=== PATIENT | male | born 1970 | race Caucasian/White ===

== ENCOUNTER 2023-12-21 12:48 | Emergency (ER) | payer OTHER, SELFPAY ==
[2023-12-21] VITALS (10 sets, daily range): BP systolic 102–144; BP diastolic 65–91; BMI 25.1
[2023-12-21 13:48] LABS: ALT (SGPT) 73 U/L (0-50); AST (SGOT) 39 U/L (17-59); Albumin 4.8 g/dl (3.5-5.0); Alkaline Phosphatase 46 U/L (38-126); Blood Urea Nitrogen 16 mg/dl (9-20); Calcium 9.9 mg/dl (8.4-10.2); Carbon Dioxide 27 mmol/L (22-30); Chloride 97 mmol/L (98-107); Estimated Creatinine Clearance 104 ml/min; Glucose 129 mg/dl (70-99); Sodium 135 mmol/L (135-145); Total Bilirubin 0.7 mg/dl (0.2-1.3); Total Protein 7.5 g/dl (6.3-8.2); eGFR > 60.00
[2023-12-21 14:00] LABS: Troponin I < 0.012 ng/ml
--- NOTE | 2023-12-21 14:28 | ED.GENMED ---
History of Present Illness
<JUAN Rosales - Last Filed: 12/25/23 01:44>
General
Chief Complaint: Chest Pain
Source: patient
Exam Limitations: none
Time Seen by Provider: 12/21/23 13:41
Nursing documentation reviewed up to this point in time: agreed with
Travel History
Have you had any contact with someone who has COVID-19?: No
Do you have any symptoms of coronavirus? Fever > 100 degrees, chills, cough, shortness of breath, sore throat, loss of taste or smell, muscle aches, or headache?: No
History of Present Illness
History of Present Illness:
53-year male with past medical history of CAD hyperlipidemia [place] stent pancreatitis presents to the ER for evaluation of chest pain. Patient was sitting at work at 11 AM when he developed pain in the center of his chest that radiated to the center
of his back. He reports this pain was similar but not as severe as the pain he had when he had stents. He had no associated shortness of breath nausea vomiting diaphoresis. He still currently has the pain he reports pain is about a 3 out of a 10.
He has not taken his aspirin today as he is out of it.
Past History
<JUAN Rosales - Last Filed: 12/25/23 01:44>
Past History
ED Past Medical History: HTN, Hypercholesterolemia, NIDDM and Other (Pancreatitis)
ED Past Surgical History: Cardiac (Cardiac cath �2, stents X3)
Social History
Tobacco: Former smoker
Alcohol: Daily (Vodka 4 glasses)
Drug: None
Personal: Other (Seperated)
Living: alone
Employment: Employed
Family History
Family History: Adopted
Review of Systems
<JUAN Rosales - Last Filed: 12/25/23 01:44>
Review of Systems
Allergies reviewed?: Yes
Constitutional: Reports no symptoms
Respiratory: Denies trouble breathing
Cardiac: Reports chest pain
ABD/GI: Reports no symptoms; Denies nausea or vomiting
: Reports no symptoms
Musculoskeletal: Reports no symptoms
Skin: Reports no symptoms
Neurological: Reports no symptoms
Hematologic/Lymphatic: Reports no symptoms
Psychiatric: Reports no symptoms
Phy Exam
<JUAN Rosales - Last Filed: 12/25/23 01:44>
General Physical Exam
General Presentation: no apparent distress
General age: appears stated age
General Skin: warm and dry
General Habitus: normal
General Mental: alert
General Hydration: appears well hydrated
Cardiovascular Exam
Cardiovascular Exam: regular rate/rhythm, no murmur and normal peripheral pulses
Pulmonary Exam
Pulmonary Exam: lungs clear and no respiratory distress
Neurological Exam
Neurological Exam: alert and oriented x3
Musculoskeletal Exam
Musculoskeletal Exam: full ROM
Skin Exam
Skin Exam: normal color and warm/dry
Psychiatric Exam
Psychiatric Exam: normal mood/affect
Scores
<JUAN Rosales - Last Filed: 12/25/23 01:44>
Heart Score for Chest Pain Patients
Heart Score for Chest Pain Patients: 3
Heart Score Risk: 2.5% MACE over next 6 weeks
<Heath Alvarenga PA-C - Last Filed: 12/21/23 17:51>
Heart Score for Chest Pain Patients
STEMI patient?: No
History: Slightly or Non-Suspicious
ECG: Normal
Age: >45 - <65 years
Risk Factors: >/= 3 Risk Factors or History of CAD
Troponin: </= Normal Limit
Heart Score for Chest Pain Patients: 3
Heart Score Risk: 2.5% MACE over next 6 weeks
Course
<JUAN Rosales - Last Filed: 12/25/23 01:44>
Orders/Labs/Results
Orders:
Orders
12/21/23 12:51
ECG [Electrocardiogram (*1)] Urgent
Reason for Study: Chest Pain
EKG- Treatment ONCE
12/21/23 13:21
Complete Blood Count/With Diff Urgent
Comprehensive Metabolic Panel Urgent
Troponin I Urgent
12/21/23 14:40
CT Chest Angio W/wo Iv Contras Urgent
Comment:
Reason For Exam: cp radiating to back
12/21/23 14:41
0.9% Sodium Chloride 1000 ml [Nss] 1,000 ml IV BOLUS
12/21/23 14:47
Aspirin Chewable [Low Strength Aspirin] 324 mg PO NOW STA
Nitroglycerin Sublingual [Nitrostat (Sublingual)] 0.4 mg SL NOW STA
12/21/23 16:00
EKG [Electrocardiogram (*1)] Urgent
Reason for Study: Chest Pain
EKG- Treatment ONCE
12/21/23 16:12
Troponin I Urgent
Abnormal Lab Results
12/21/23 12/21/23
13:21 17:37
RBC 4.49 L 10^6/uL
(4.70-6.10)
MCH 34.1 H pg
(27.0-31.0)
RDW 11.3 L %
(11.5-14.5)
MPV 11.2 H fL
(7.4-10.4)
Chloride 97 L mmol/L
(98-107)
Glucose 129 H mg/dl
(70-99)
ALT 73 H U/L
(0-50)
POC Glucose 109 H mg/dl
(70-99)
12/21/23 13:21
12/21/23 13:21
Vital Signs
Initial and Last Documented VS:
Initial Vital Signs
Temp Pulse Resp BP Pulse Ox
98.1 F 71 18 137/91 96
12/21/23 13:05 12/21/23 13:05 12/21/23 13:05 12/21/23 13:05 12/21/23 13:05
Last Documented Vital Signs
Temp Pulse Resp BP Pulse Ox
98.3 F 82 15 144/88 99
12/21/23 18:02 12/21/23 17:45 12/21/23 17:45 12/21/23 17:22 12/21/23 17:45
<Heath Alvarenga PA-C - Last Filed: 12/21/23 17:51>
Orders/Labs/Results
Orders:
Orders
12/21/23 12:51
ECG [Electrocardiogram (*1)] Urgent
Reason for Study: Chest Pain
EKG- Treatment ONCE
12/21/23 13:21
Complete Blood Count/With Diff Urgent
Comprehensive Metabolic Panel Urgent
Troponin I Urgent
12/21/23 14:40
CT Chest Angio W/wo Iv Contras Urgent
Comment:
Reason For Exam: cp radiating to back
12/21/23 14:41
0.9% Sodium Chloride 1000 ml [Nss] 1,000 ml IV BOLUS
12/21/23 14:47
Aspirin Chewable [Low Strength Aspirin] 324 mg PO NOW STA
Nitroglycerin Sublingual [Nitrostat (Sublingual)] 0.4 mg SL NOW STA
12/21/23 16:00
EKG [Electrocardiogram (*1)] Urgent
Reason for Study: Chest Pain
EKG- Treatment ONCE
12/21/23 16:12
Troponin I Urgent
Abnormal Lab Results
12/21/23 12/21/23
13:21 17:37
RBC 4.49 L 10^6/uL
(4.70-6.10)
MCH 34.1 H pg
(27.0-31.0)
RDW 11.3 L %
(11.5-14.5)
MPV 11.2 H fL
(7.4-10.4)
Chloride 97 L mmol/L
(98-107)
Glucose 129 H mg/dl
(70-99)
ALT 73 H U/L
(0-50)
POC Glucose 109 H mg/dl
(70-99)
12/21/23 13:21
12/21/23 13:21
Vital Signs
Initial and Last Documented VS:
Initial Vital Signs
Temp Pulse Resp BP Pulse Ox
98.1 F 71 18 137/91 96
12/21/23 13:05 12/21/23 13:05 12/21/23 13:05 12/21/23 13:05 12/21/23 13:05
Last Documented Vital Signs
Temp Pulse Resp BP Pulse Ox
98.3 F 82 15 144/88 99
12/21/23 18:02 12/21/23 17:45 12/21/23 17:45 12/21/23 17:22 12/21/23 17:45
<JUAN Rosales - Last Filed: 12/25/23 01:44>
MDM/Problems Addressed
MDM/Problems Addressed:
1610:Patient is a 53 yr old male who presents to the ER complaining of chest pressure that radiated to his back. 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 He reports this was the same as when he had
previous cardiac stents. He presents awake alert no acute distress nontachycardic nonhypoxic nontachypneic. No acute findings on EKG. Will give aspirin here in the ER and will give nitro. Will CT a angio of chest with chest pain rating to the
back. Case Case discussed with on-call checkering machine adjuster his second cardiac troponin patient may likely be discharged home. Care of patient this time transferred to [facility]
<JUAN Rosales - Last Filed: 12/25/23 01:44>
*Radiology
Radiology exam reviewed: radiology read reviewed
*Pulse Oximetry
Patient hypoxic: no
<Heath Alvarenga PA-C - Last Filed: 12/21/23 17:51>
*Critical Care Note
Total Time (30-74mins, 75-104mins- exclusive of procedures): Not Applicable
<Heath Alvarenga PA-C - Last Filed: 12/21/23 17:51>
Update Note
Update Note:
Assumed care of patient pending CT of chest and repeat troponin. Repeat troponin undetectable. CT PE study negative for acute finding. Patient reassessed. He is pain-free with stable vital signs. No chest discomfort or back pain. Provider
earlier did speak with cardiology. Will discharge patient with chest pain follow-up. Return precautions were given
ED Attending Note
<JUAN Rosales - Last Filed: 12/25/23 01:44>
-
Portions of this chart may have been created with voice recognition software.� Occasional wrong word or��sound alike� substitutions may have occurred due to the inherent limitations of voice recognition software.
Discharge Plan
Departure
Patient Disposition: Home (Routine Discharge)
Date of Disposition: 12/21/23
Time of Disposition: 17:50
Patient with high blood pressure during this ER visit?: No
Discharge Problem:
Chest pain
Instructions: Chest Pain DCA Follow Up
Prescriptions:
No Action
glimepiride 4 MG tablet
4 mg PO DAILY
Patient Comments:
Patient takes in AM
lisinopril 20 MG tablet
20 mg PO DAILY Qty: 30 11RF
metoprolol succinate 100 MG tablet extended release 24 hr
100 mg PO BID Qty: 60 11RF
clopidogrel 75 MG tablet
75 mg PO DAILY Qty: 30 11RF
amlodipine 10 MG tablet
10 mg PO DAILY Qty: 30 11RF
aspirin 81 MG tablet,chewable
81 mg PO DAILY 0RF
metformin 1,000 MG tablet
1,000 mg PO BID@0630,1900 Qty: 60 0RF
Patient Comments:
Patient usually takes around meals at 0630, 1900
Rx Instructions:
Hold metformin for 48 hours following cath, then resume
insulin degludec [Tresiba FlexTouch U-100] 100 UNIT/ML insulin pen
50 unit SQ HSPRN PRN (Reason: high blood sugar ) Qty: 1 0RF
Rx Instructions:
Follow-up with your primary care doctor about whether or not to resume Tresiba
atorvastatin 40 MG tablet
80 mg PO QPM
Referrals:
Ryne Lee DO [Family Provider] -
Stand Alone Forms: Return to Work
Activity Restrictions/Additional Instructions:
Please continue current medication. Please return here for worsening symptoms otherwise follow-up with cardiology for next available appointment. They should give you a call soon to set up an appointment
Interventions
Interventions:
*Risk Screen - Suicide Last Done: 12/21/23 17:05
*General Assessment Last Done: 12/21/23 17:05
*Neglect/Abuse Screening Last Done: 12/21/23 17:05
ED- Fall Risk Assessment Last Done: 12/21/23 13:40
*ED COVID-19 Vaccine History Last Done: 12/21/23 13:05
*Nursing Disposition Last Done: 12/21/23 18:06
ED- Cardiac Assessment Last Done: 12/21/23 14:56
Discharge Date and Time
Discharge Date/Time: 12/21/23 18:07
Print Language: MALTESE
[2023-12-21] MEDS: LOW STRENGTH ASPIRIN 324 MG PO (15:02)
[2023-12-21] MEDS: NITROSTAT (SUBLINGUAL) 0.400000000000000022 MG SL (15:03)
[2023-12-21] MEDS: NSS 1000 IV (15:05)
[2023-12-21 15:14] LABS: % Basophils 0.9 % (0-2); % Eosinophils 4.1 % (0-6); % Immature Granulocytes 0.5 % (0-0.5); % Lymphocytes 28.9 % (20.5-51.1); % Monocytes 6.8 % (1.7-9.3); % Neutrophils 58.8 % (42.2-75.2); Absolute Basophils 0.1 10^3/uL (0-0.2); Absolute Eosinophils 0.3 10^3/uL (0-0.7); Absolute Lymphocytes 1.9 10^3/uL (1.2-3.4); Absolute Monocytes 0.4 10^3/uL (0.1-0.6); Absolute Neutrophils 3.8 10^3/uL (1.4-6.5); Hematocrit 41.6 % (39.0-52.0); Hemoglobin 15.3 g/dL (13.0-18.0); Mean Corp Hgb Conc. 36.8 g/dL (33.0-37.0); Mean Corpuscular Hgb 34.1 pg (27.0-31.0); Mean Corpuscular Volume 92.7 fL (80.0-94.0); Mean Platelet Volume 11.2 fL (7.4-10.4); Nucleated Red Blood Cells % 0 % (-); Platelet Count 167 10^3/uL (130-400); Red Blood Cell Count 4.49 10^6/uL (4.70-6.10); Red Cell Dist. Width 11.3 % (11.5-14.5); White Blood Cell Count 6.5 10^3/uL (4.8-10.8)
[2023-12-21 16:46] LABS: Troponin I < 0.012 ng/ml
[2023-12-21 17:39] LABS: Glucose - Point of Care 109 mg/dl (70-99)
== END 2023-12-21 18:07 | disposition home or self-care (01) ==
LOC: EMR 12:48
PROVIDERS: Physician Assistant; Physician Assistant Medical; EMERGENCY PHYSICIAN Emergency Medicine; FAMILY PHYSICIAN Family Medicine
DX: R07.89 Other chest pain (principal); M54.6 Pain in thoracic spine; R11.0 Nausea; R05.9 Cough, unspecified; I25.10 Atherosclerotic heart disease of native coronary artery without angina pectoris; Z95.5 Presence of coronary angioplasty implant and graft; K86.1 Other chronic pancreatitis; E78.00 Pure hypercholesterolemia, unspecified; E11.9 Type 2 diabetes mellitus without complications; I25.2 Old myocardial infarction; Z87.891 Personal history of nicotine dependence; Z79.82 Long term (current) use of aspirin
CPT/HCPCS: 99285; 71275; 80053; 82962; 84484; 85025; 93005; Q9967

== ENCOUNTER → 2024-01-11 08:04 | Outpatient (REF) | payer OTHER, SELFPAY | LOC: DHCBC/DCA 08:04 | PROVIDERS: ATTENDING PHYSICIAN Internal Medicine Cardiovascular Disease; FAMILY PHYSICIAN Family Medicine | DX: I25.10 Atherosclerotic heart disease of native coronary artery without angina pectoris (principal); Z98.890 Other specified postprocedural states; R07.89 Other chest pain | CPT/HCPCS: 78452; 93017; A9500 ==

== ENCOUNTER 2024-09-10 03:37 | Day surgery (SDC) | payer OTHER, SELFPAY ==
[2024-09-09 21:22] VITALS: BMI 25.0
[2024-09-09 21:24] VITALS: BP 123/84
[2024-09-09 21:45] LABS: % Basophils 0.6 % (0-2); % Eosinophils 3.4 % (0-6); % Immature Granulocytes 0.6 % (0-0.5); % Lymphocytes 21.8 % (20.5-51.1); % Monocytes 7.5 % (1.7-9.3); % Neutrophils 66.1 % (42.2-75.2); Absolute Basophils 0.1 10^3/uL (0-0.2); Absolute Eosinophils 0.3 10^3/uL (0-0.7); Absolute Immature Granulocytes 0.1 10^3/uL (0-0.05); Absolute Lymphocytes 2.1 10^3/uL (1.2-3.4); Absolute Monocytes 0.7 10^3/uL (0.1-0.6); Absolute Neutrophils 6.3 10^3/uL (1.4-6.5); Hematocrit 41.5 % (39.0-52.0); Hemoglobin 14.5 g/dL (13.0-18.0); Mean Corp Hgb Conc. 34.9 g/dL (33.0-37.0); Mean Corpuscular Hgb 31.9 pg (27.0-31.0); Mean Corpuscular Volume 91.4 fL (80.0-94.0); Mean Platelet Volume 9.3 fL (7.4-10.4); Nucleated Red Blood Cells % 0 % (-); Platelet Count 180 10^3/uL (130-400); Red Blood Cell Count 4.54 10^6/uL (4.70-6.10); Red Cell Dist. Width 11.4 % (11.5-14.5); White Blood Cell Count 9.5 10^3/uL (4.8-10.8)
[2024-09-09 21:46] LABS: Urine Albumin Negative (Neg - Trace); Urine Bilirubin Negative (Negative); Urine Character Clear (Clear); Urine Color Yellow; Urine Glucose 4+ (Negative); Urine Ketone Negative (Negative); Urine Leukocyte Negative (Negative); Urine Nitrite Negative (Negative); Urine Occult Blood Negative (Negative); Urine Specific Gravity 1.015 (<1.030); Urine Urobilinogen Negative (Neg - 1+)
[2024-09-09 22:05] LABS: ALT (SGPT) 78 U/L (0-50); AST (SGOT) 42 U/L (17-59); Albumin 4.2 g/dl (3.5-5.0); Alkaline Phosphatase 79 U/L (38-126); Blood Urea Nitrogen 19 mg/dl (9-20); Calcium 9.5 mg/dl (8.4-10.2); Carbon Dioxide 29 mmol/L (22-30); Chloride 97 mmol/L (98-107); Glucose 126 mg/dl (70-99); Sodium 133 mmol/L (135-145); Total Bilirubin 0.7 mg/dl (0.2-1.3); Total Protein 6.6 g/dl (6.3-8.2); eGFR > 60.00
[2024-09-09 23:00] VITALS: BP 128/75
[2024-09-10] VITALS (18 sets, daily range): BP systolic 107–146; BP diastolic 64–93; BMI 24.8
--- NOTE | 2024-09-10 02:09 | ED.GENMED ---
History of Present Illness
General
Chief Complaint: Flank Pain
Source: patient
Exam Limitations: none
Time Seen by Provider: 09/09/24 23:09
History of Present Illness
History of Present Illness:
54-year-old male presents with right sided abdominal pain and flank pain onset earlier this evening. Pain is constant dull aching in nature with slight nausea but no vomiting. Pain occasionally radiates to the front. No associated chest pain. No
shortness of breath. No fevers. History of hypertension hyperlipidemia myocardial infarction yyk-kcwejkc-dqylwkjeg diabetes
Past History
Past History
ED Past Medical History: HTN, Hypercholesterolemia, NIDDM and Other (Pancreatitis)
ED Past Surgical History: Cardiac (Cardiac cath �2, stents X3)
Social History
Tobacco: Former smoker
Alcohol: Daily (Vodka 4 glasses)
Drug: None
Personal: Other (Seperated)
Living: alone
Employment: Employed
Family History
Family History: Adopted
Phy Exam
Physical Exam
Physical Exam:
General: Well-appearing male no acute respiratoryDistress
HEENT: Normocephalic atraumatic
Heart: Regular rate and rhythm no murmurs
Lungs: Clear no wheeze
Abdomen soft tender to the right mid abdomen no guarding rebound negative Beasley sign
Ext: No cyanosis or edema
skin: warm, no rash
Course
Orders/Labs/Results
Orders:
Orders
09/09/24 21:33
Complete Blood Count/With Diff Urgent
Comprehensive Metabolic Panel Urgent
Urinalysis Reflex To Culture Urgent
Date Specimen was Collected: 09/09/24
Time Specimen was Collected: 21:24
09/10/24 01:00
CT Abd/pel Without Iv Or Oral Urgent
Reason For Exam: right flank pain
09/10/24 02:39
Piperacillin/Tazo 3.375 Gram [Zosyn] 3.375 gram in 50 ml IV NOW
Abnormal Lab Results
09/09/24
21:33
RBC 4.54 L 10^6/uL
(4.70-6.10)
MCH 31.9 H pg
(27.0-31.0)
RDW 11.4 L %
(11.5-14.5)
Abs Immat Gran (auto) 0.1 H 10^3/uL
(0-0.05)
Absolute Monos (auto) 0.7 H 10^3/uL
(0.1-0.6)
Immature Gran % 0.6 H %
(0-0.5)
Sodium 133 L mmol/L
(135-145)
Chloride 97 L mmol/L
(98-107)
Glucose 126 H mg/dl
(70-99)
ALT 78 H U/L
(0-50)
Urine Glucose 4+ A
(Negative)
09/09/24 21:33
09/09/24 21:33
Vital Signs
Initial and Last Documented VS:
Initial Vital Signs
Temp Pulse Resp BP Pulse Ox
98.5 F 80 16 123/84 100
09/09/24 21:24 09/09/24 21:24 09/09/24 21:24 09/09/24 21:24 09/09/24 21:24
Last Documented Vital Signs
Temp Pulse Resp BP Pulse Ox
98.0 F 74 17 121/82 96
09/09/24 23:01 09/10/24 02:00 09/10/24 02:00 09/10/24 02:00 09/10/24 02:00
MDM/Problems Addressed
Differential Diagnosis Includes:
Right mid abdominal pain/flank pain. Consider renal colic with biliary colic versus cholecystitis versus constipation
Urinalysis shows glucose in the urine but no sign of infection or blood. CT was ordered secondary to pain in the right flank which demonstrates gallbladder wall thickening and pericholecystic fluid suggestive of acute cholecystitis. Discussed
findings with patient as well as general surgery.
*Critical Care Note
Total Time (30-74mins, 75-104mins- exclusive of procedures): Not Applicable
Update Note
Update Note:
Discussed with general surgery. They agreed to admit the patient. Miriansyn ordered will hold Plavix and repeat labs in the morning. House provider made aware
ED Attending Note
-
Portions of this chart may have been created with voice recognition software.� Occasional wrong word or��sound alike� substitutions may have occurred due to the inherent limitations of voice recognition software.
Discharge Plan
Departure
Patient Disposition: Admit
Date of Disposition: 09/10/24
Time of Disposition: 02:42
Presentation/result/management discussed w/ accepting MD/DO: Myron
Discharge Problem:
Acute cholecystitis
Prescriptions:
No Action
glimepiride 4 MG tablet
4 mg PO DAILY
Patient Comments:
Patient takes in AM
lisinopril 20 MG tablet
20 mg PO DAILY Qty: 30 11RF
metoprolol succinate 100 MG tablet extended release 24 hr
100 mg PO BID Qty: 60 11RF
clopidogrel 75 MG tablet
75 mg PO DAILY Qty: 30 11RF
amlodipine 10 MG tablet
10 mg PO DAILY Qty: 30 11RF
aspirin 81 MG tablet,chewable
81 mg PO DAILY 0RF
metformin 1,000 MG tablet
1,000 mg PO BID@0630,1900 Qty: 60 0RF
Patient Comments:
Patient usually takes around meals at 0630, 1900
Rx Instructions:
Hold metformin for 48 hours following cath, then resume
insulin degludec [Tresiba FlexTouch U-100] 100 UNIT/ML insulin pen
50 unit SQ HSPRN PRN (Reason: high blood sugar ) Qty: 1 0RF
Rx Instructions:
Follow-up with your primary care doctor about whether or not to resume Tresiba
atorvastatin 40 MG tablet
80 mg PO QPM
Referrals:
Ryne Lee, DO [Family Provider] -
Interventions
Interventions:
*Risk Screen - Suicide Last Done: 09/09/24 21:24
*General Assessment Last Done: 09/09/24 21:24
*Neglect/Abuse Screening Last Done: 09/09/24 23:24
ED- Fall Risk Assessment Last Done: 09/09/24 23:24
*ED COVID-19 Vaccine History Last Done: 09/09/24 21:24
PK-Eejtbx-Tmdlpohobe Assessment Last Done: 09/09/24 23:33
ED-Male Genitourinary Assessment Last Done: 09/09/24 23:33
Discharge Date and Time
Print Language: ICELANDIC
[2024-09-10] MEDS: ZOSYN 50 IV ×2 (03:23→08:29)
--- NOTE | 2024-09-10 03:27 | HPS.HSE ---
Addendum entered and electronically signed by Jemal Sanches MD 09/10/24 08:26:
Patient seen and examined.
Patient is a 54 yo M with a PMH of HTN, HLD, CAD c/b [place] s/p PCI with drug-eluting stent x 3 (on baby aspirin x 2, LD Monday night), NIDDM, and alcoholic pancreatitis. Mr. Rivero presents with RUQ abdominal pain and discomfort. His symptoms began
acutely yesterday at approximately 5 PM. He denies any association with fatty food intake. He describes a sharp pain in his RUQ with some mild radiation to his back. Associated nausea, no episodes of vomiting. He denies any jaundice, pale
stools, or tea colored urine. Denies having any prior similar attacks. No fevers or chills.
Of note, he follows with Dr. Maury Null for a counter hop. He was last evaluated in 06/2024. He recently underwent a biceps tendon repair by Dr. Bailey which he did well with. He is able to walk up and down a flight of stairs. Denies any chest
pain or shortness of breath.
Gen: NAD
Abd: soft, mild tenderness in RUQ, positive Beasley's sign, ND, non-peritoneal
Labs and CT scan were reviewed
Patient is a 54 yo M p/w acute cholecystitis
The natural history and pathophysiology of biliary and stone disease was briefly discussed. Workup thus far including labs and CT scan imaging was reviewed. Options for management were reviewed. Given his persistent discomfort recommend
cholecystectomy.
Plan for laparoscopic cholecystectomy with possible cholangiogram. The procedure itself, as well as the risks, benefits, and alternatives was discussed. Specifically, we discussed the risks of bleeding, infection, injury to surrounding structures
(bowel, bile ducts), CBD injury, need for open procedure. Typical postprocedural recovery was discussed. Specifically, we discussed pain management, activity restrictions, and the 10-20% risks of fluctuations in GI function. All questions
answered. Consent signed.
-- Laparoscopic cholecystectomy with possible IOC
-- NPO, IVF
-- Antibiotics: Zosyn
-- Pain control: Tylenol and IV Dilaudid as needed
-- Dr. Null from Cardiology was alerted to his presence and potential upcoming procedure. Anticipate little need for further workup or management. Appreciate curbside consultation.
Original Note:
Family Physician
-
Family Physician: Ryne Lee
Chief Complaint
-
Abdominal Pain
History of Present Illness
54 year old male with PMH of HTN, Hypercholesterolemia, NIDDM, Pancreatitis, VA. Present in ER with RT sided abdominal pain/ RT flank pain. Symptoms associated with nausea. Pain rated 5-7/10 of pain scale constant and dull, patient was not able to
get in comfortable position. Denies similar episodes, denies vomiting, diarrhea, constipation, chills, fever, urinary symptoms, SOB, chest pain or any other symptoms.
Medical History
Past Medical History
Past Medical History: Reports HTN, Hypercholesterolemia, NIDDM, VA and Other (Pancreatitis)
Past Surgical History: Reports Cardiac (Cardiac cath �2, stents X3)
Social History
Tobacco: Former Smoker
Alcohol: None
Drug: None
Personal: Other
Living: Other
Employment: Employed
Family History
Family History: Adopted
Allergies / Home Medications
Allergies reflects when Allergies were last updated in [employer].
Home Medications with original date entered in [employer]
Allergy/Medication List:
Patient Allergies
Allergy/AdvReac Type Severity Reaction Status Date / Time
No Known Allergies Allergy Verified 09/09/24 21:26
Home Medications Table - record
�Medication �Instructions �Recorded �Confirmed
lisinopril 20 mg tablet 20 mg PO DAILY ##30 08/17/17 09/10/24
atorvastatin 40 mg tablet 40 mg PO QPM 10/12/17 09/10/24
Jardiance 10 mg PO DAILY 09/10/24 09/10/24
amlodipine 10 mg tablet 5 mg PO DAILY 09/10/24 09/10/24
aspirin 81 mg chewable tablet 2 tab PO QHS 09/10/24 09/10/24
ezetimibe 10 mg tablet 10 mg PO DAILY 09/10/24 09/10/24
glimepiride 2 mg tablet 1 mg PO DAILY 09/10/24 09/10/24
hydrochlorothiazide 25 mg tablet 25 mg PO DAILY 09/10/24 09/10/24
metformin 1,000 mg tablet 1,000 mg PO BID 09/10/24 09/10/24
metoprolol succinate 100 mg 100 mg PO QHS 09/10/24 09/10/24
tablet,extended release 24 hr
omega 0-roi-ikr-fish oil 900 1 cap PO QHS 09/10/24 09/10/24
mg-1,400 mg capsule,delayed release
tadalafil 20 mg tablet 20 mg PO DAILY PRN erectile 09/10/24 09/10/24
Review of Systems
-
History Source: Patient
A 12 point ROS was completed and negative except as noted: Yes
Constitutional: Reports No Symptoms
EENT: Reports No Symptoms
Respiratory: Reports No Symptoms
Cardiac: Reports No Symptoms
Abdomen/GI: Reports Abdominal Pain and Nausea
: Reports Flank Pain
Musculoskeletal: Reports No Symptoms
Skin: Reports No Symptoms
Neurological: Reports No Symptoms
Endocrine: Reports No Symptoms
Hematologic/Lymphatic: Reports No Symptoms
Psych: Reports No Symptoms
Physical Exam
Vital Signs
Vital Signs
Temp Pulse Resp BP Pulse Ox
98.0 F 73 10 121/82 96
09/09/24 23:01 09/10/24 03:23 09/10/24 03:23 09/10/24 02:00 09/10/24 02:00
Physical Exam
General: No Apparent Distress
Respiratory: Clear
Cardiac: Regular Rhythm
GI: Soft, Non Tender, Normal Bowel Sounds and Tender (RT side of the abdomen)
Musculoskeletal: No Edema
Neuro: Awake and AO x 3
Psych: Calm
Laboratory Results
-
09/09/24 21:33
09/09/24 21:33
Laboratory Results
Total Bilirubin 0.7 mg/dl (0.2-1.3) 09/09/24 21:33
AST 42 U/L (17-59) 09/09/24 21:33
ALT 78 U/L (0-50) H 09/09/24 21:33
Alkaline Phosphatase 79 U/L (38-126) 09/09/24 21:33
Data Reviewed
-
CT Scan: Discussed with Patient
Impression/Plan
-
CT abd/PLVs shows: Gallbladder Wall thickening with pericholecystic fluid, may represent acute cholecystitis. No bowel obstruction. Normal appendix
IMPRESSION:
acute cholecystitis
PLAN:
Admit/ observation/ med-surg . Dr. Sanches ( surgical services)
NPO
IV abx Zosyn
analgesics as needed
Antiemetics as needed
Repeat cbc, cmp in am
NIDDM
hold oral diabetic meds
start ISS
HTN
Continue amlodipine, lisinopril, metoprolol
CAD
Continue aspirin
Hyperlipidemia
Continue atorvastatin, ezetimibe
DVT prophylaxis Lovenox
Code status Full code
[2024-09-10 04:34] LABS: ALT (SGPT) 76 U/L (0-50); AST (SGOT) 40 U/L (17-59); Albumin 4.2 g/dl (3.5-5.0); Alkaline Phosphatase 68 U/L (38-126); Blood Urea Nitrogen 18 mg/dl (9-20); Calcium 9.4 mg/dl (8.4-10.2); Carbon Dioxide 25 mmol/L (22-30); Chloride 101 mmol/L (98-107); Estimated Creatinine Clearance 103 ml/min; Glucose 118 mg/dl (70-99); Potassium 3.8 mmol/L (3.5-5.1); Sodium 136 mmol/L (135-145); Total Bilirubin 1.1 mg/dl (0.2-1.3); Total Protein 6.4 g/dl (6.3-8.2); eGFR > 60.00
[2024-09-10] MEDS: TOPROL XL 100 MG PO ×2 (04:50→22:24)
[2024-09-10] MEDS: LOW STRENGTH ASPIRIN 162 MG PO ×2 (04:50→22:25)
[2024-09-10 06:47] LABS: Hematocrit 40.9 % (39.0-52.0); Hemoglobin 14.4 g/dL (13.0-18.0); Mean Corp Hgb Conc. 35.2 g/dL (33.0-37.0); Mean Corpuscular Hgb 32.6 pg (27.0-31.0); Mean Corpuscular Volume 92.5 fL (80.0-94.0); Mean Platelet Volume 9.7 fL (7.4-10.4); Platelet Count 141 10^3/uL (130-400); Red Blood Cell Count 4.42 10^6/uL (4.70-6.10); Red Cell Dist. Width 11.4 % (11.5-14.5); White Blood Cell Count 5.4 10^3/uL (4.8-10.8)
[2024-09-10 07:40] LABS: Glucose - Point of Care 119 mg/dl (70-99)
--- NOTE | 2024-09-10 08:26 | W.SUR.PREOP ---
Pre-Operative Surgical Note
-
I have examined this patient prior to the performance of the scheduled procedure.
The patient's condition is unchanged from the time of the current History and
Physical and the patient is able to undergo the scheduled procedure.
[2024-09-10] MEDS: ZETIA 10 MG PO (08:29)
[2024-09-10] MEDS: NOVOLOG FLEXPEN-LOW RESISTANCE SC ×2 (08:29→12:18)
--- NOTE | 2024-09-10 08:59 | CON.CAR ---
Addendum entered and electronically signed by Maury Null MD 09/10/24 09:25:
54-year-old man with history of CAD/PCI (LAD DHAVAL times 18 July 2017, RCA DHAVAL August 2017, history of pancreatitis, prior EtOH use disorder, type 2 diabetes, nonischemic cardiomyopathy with improved EF, right bundle branch block and
hypercholesterolemia, now with acute cholecystitis and plan for laparoscopic cholecystectomy and possible cholangiogram. At present he feels relatively comfortable with mild right upper quadrant tenderness.
Sestamibi study December 2023: 11 minutes Kee protocol, small mild fixed basal inferior, mid inferior, apical inferior defect related to soft tissue attenuation artifact, EF 56%
Last echo November 2018: EF 65%, no significant valvular heart disease
Outpatient meds effective July 11, 2024: Aspirin 81 mg a day, glimepiride 4 mg a day, hydrochlorothiazide 25 mg a day, Jardiance 10 mg a day, Lipitor 40 mg a day, lisinopril 20 mg a day, metformin 500 mg a day, metoprolol ER 50 mg a day,
amlodipine 10 mg a day, tadalafil, Zetia 10 mg daily
113/80, pulse 65, respiratory rate, 16, afebrile, head neck exam unremarkable, lungs are clear, regular rate and rhythm, abdomen benign, extremities without clubbing cyanosis or edema distal pulses intact.
White count 5.4, hemoglobin 14.4, platelets 141, BUN and creatinine 18 and 0.8, ALT 76
Preop ECG is pending.
Impression:
Acute cholecystitis
CAD/PCI LAD and RCA 2017
History of ischemic/nonischemic cardiomyopathy with improved EF
Type 2 diabetes
Hypertension
Hyperlipidemia
Remote EtOH use with pancreatitis
Former smoker
Bicep tendon repair July 2024
Plan:
Arnulfo is very stable from a cardiac standpoint and can proceed as planned with laparoscopic cholecystectomy at acceptable perioperative cardiac risk pending review of ECG which I expect to be unremarkable.
Metoprolol should be continued perioperatively. Aspirin should be continued perioperatively. The patient has not been on clopidogrel for several years, so this is not an issue.
Would not object to discharge in the short-term following surgery if he is stable from a surgical standpoint.
He can follow-up to us as planned.
Original Note:
Consultation
Consultation Request
Date/Time Consultation Performed: 09/10/24
Requesting Provider: Dr. Sanches
Performing Provider: Montse Dockery PA-C for Dr. JANA Null
Reason for Consultation: pre op
Medical History
-
Chief Complaint: abd pain
History of Present Illness:
Patient is a 54-year-old male with past medical history of CAD status post LAD and RCA stenting, prior ischemic cardiomyopathy with subsequent recovery, hypertension, hyperlipidemia, type 2 diabetes, who underwent left bicep tendon repair 07/2024.
He reports that he went back to work yesterday. When he got home from work he began with some abdominal pain in his right upper quadrant with some mild radiation to his back. This was made worse with eating. He reported associated nausea, but no
vomiting. Denies fevers. Denies prior episodes to his knowledge. Imaging with evidence of acute cholecystitis. Plan for OR today. Cardiology consulted for preop evaluation. Denies recent chest pain, shortness of breath, lightheadedness.
PMH:
CAD status post LAD and RCA PCI 2017
Prior ischemic cardiomyopathy with subsequent recovery
Hypertension
Hyperlipidemia
Type 2 diabetes
Status post left bicep tendon repair 07/2024
History of EtOH pancreatitis
Former smoker
Past Medical History
Past Medical History: Other (in HPI)
Social History
Tobacco: Former Smoker
Alcohol: Former
Personal: Partner
Employment: Employed
Family History
Family History: Adopted
Allergies / Home Medications
Allergy/AdvReac Type Severity Reaction Status Date / Time
No Known Allergies Allergy Verified 09/09/24 21:26
�Medication �Instructions �Recorded �Confirmed �Type
lisinopril 20 mg tablet 20 mg PO DAILY ##30 08/17/17 09/10/24 Rx
atorvastatin 40 mg tablet 40 mg PO QPM 03/29/18 02/25/25 History
Jardiance 10 mg PO DAILY 09/10/24 09/10/24 History
amlodipine 10 mg tablet 5 mg PO DAILY 09/10/24 09/10/24 History
aspirin 81 mg chewable tablet 2 tab PO QHS 09/10/24 09/10/24 History
ezetimibe 10 mg tablet 10 mg PO DAILY 09/10/24 09/10/24 History
glimepiride 2 mg tablet 1 mg PO DAILY 09/10/24 09/10/24 History
hydrochlorothiazide 25 mg tablet 25 mg PO DAILY 09/10/24 09/10/24 History
metformin 1,000 mg tablet 1,000 mg PO BID 09/10/24 09/10/24 History
metoprolol succinate 100 mg 100 mg PO QHS 09/10/24 09/10/24 History
tablet,extended release 24 hr
omega 0-klj-ktv-fish oil 900 1 cap PO QHS 09/10/24 09/10/24 History
mg-1,400 mg capsule,delayed release
tadalafil 20 mg tablet 20 mg PO DAILY PRN erectile 09/10/24 09/10/24 History
Review of Systems
-
History Source: Patient
All other systems: Negative unless noted
Physical Exam
Vital Signs
Temp Pulse Resp BP Pulse Ox
98.0 F 65 16 113/80 97
09/10/24 07:55 09/10/24 07:55 09/10/24 07:55 09/10/24 07:55 09/10/24 07:55
Lab Results
09/10/24 06:00
09/10/24 04:00
Physical Exam
General: No Apparent Distress and Comfortable
HEENT: Normocephalic, Anicteric and Moist Mucous Membranes
Respiratory: Clear and Non Labored Respirations
Cardiac: S1/S2 and Regular Rhythm
GI: Soft, Non Distended, Normal Bowel Sounds and Tender (RUQ)
Musculoskeletal: No Clubbing, No Cyanosis and No Edema
Skin: Warm and Dry
Neuro: AO x 3
Impression / Plan
-
Primary Bike Technician: Dr. JANA Null
Assessment:
RUQ pain
Acute cholecystitis
CAD status post LAD and RCA PCI 2017
Prior ischemic cardiomyopathy with subsequent recovery
Hypertension
Hyperlipidemia
Type 2 diabetes
Status post left bicep tendon repair 07/2024
History of EtOH pancreatitis
Former smoker
ECHO 11/16/18: EF 60 to 65%, no significant valvular disease
Exercise nuclear stress test 01/11/2024: Negative EKG for ischemia, fixed defect in basal inferior, mid inferior and apical inferior segments consistent with STA, EF 56%, low risk study
Plan:
-Patient with prior CAD status post stenting in 2017 who underwent recent left bicep tendon repair 07/2024, now presents back with right upper quadrant pain and found to have evidence of acute cholecystitis by CTAP. He is planned for OR today.
Cardiology consulted for preop evaluation
-he denies any recent chest pain or shortness of breath
-Exercise nuclear stress test within the last year with results as above, negative for ischemia
-pre op EKG ordered by me
-Continue OP aspirin.
-Okay to proceed to the OR as planned at mildly elevated but acceptable cardiovascular risk.
-Discussed with general surgery via [place] text
Data Reviewed
-
EKG: Tracing Personally Visualized and interpreted
CT Scan: Report Reviewed by me
Medical Tests (Nuc Med, Echo etc): Report Reviewed by me
Labs: Labs Reviewed by me
Old Records: Reviewed
--- NOTE | 2024-09-10 10:42 | W.PN.SURGUPD ---
Surgical Update
Surgical Update
CT scan or ultrasound without stones, however, patient has wall thickening with pericholecystic fluid. Clinical and radiographic evidence consistent with acute cholecystitis likely compounded by diabetes. Options for management were reviewed with
the patient. Recommended plan for laparoscopic cholecystectomy. He agrees and is willing to proceed.
--- NOTE | 2024-09-10 11:07 | PTCARENOTE ---
Patient completed US of abdomen and EKG completed. Patient NPO since midnight. CHG wipes competed and new gown placed. Patient left for OR with transport team in bed.
[2024-09-10 13:00] LABS: Glucose - Point of Care 188 mg/dl (70-99)
[2024-09-10] MEDS: NOVOLOG vial 1 UNITS SC (13:17)
--- NOTE | 2024-09-10 13:20 | W.IMMPOSTOP ---
Surgical Immed Post Op Note
-
Primary Surgeon: Myron
Assisting Surgeon: None
Pre-op Diagnosis: Acute cholecystitis
Post-op Diagnosis: Acute cholecystitis
Procedure Performed: Laparoscopic cholecystectomy with cholangiogram
Anesthesia Type: General
Specimen / Cultures:
1. Gallbladder
Estimated Blood Loss: 7 cc
Complications: None
Operative Findings:
1. Omental and duodenal adhesions along infundibulum, soft, edema and mild wall thickening
2. Critical view
3. IOC negative
4. Duct and artery taken with clips
[2024-09-10] MEDS: NORMOSOL-R/PLASMALYTE-A 1000 IV (14:13)
--- NOTE | 2024-09-10 14:27 | PTCARENOTE ---
Patient returned from OR/status post lap chema. Vital signs stable. Denies pain or other complaints. 5 lap surgical sites approximated with surgical glue. No drainage noted.
[2024-09-10] MEDS: ZOSYN IV (15:41)
[2024-09-10] MEDS: NSS (PRESERVATIVE FREE) 10 ML IV (15:41)
[2024-09-10] MEDS: PROTONIX IV 40 MG IV (15:41)
--- NOTE | 2024-09-10 15:59 | CM ---
Alert awake oriented patient who lives alone in a 2 story home with 1 step to enter and 5 steps to bed and bathroom. He is independent in driving and in all activities of daily living.He was offered VN he declined need.He had Lap choly.Reg
Observation letter given explained and pt did not sign observation letter.
No VN hx / No SNF history
Pharmacy [facility], [place]
PCP DR Srivastava
PLAN Home no needs
[2024-09-10] MEDS: LOVENOX 40 MG SC (17:30)
[2024-09-10] MEDS: LIPITOR 40 MG PO (17:30)
[2024-09-10 17:37] LABS: Glucose - Point of Care 314 mg/dl (70-99)
[2024-09-10] MEDS: NOVOLOG FLEXPEN-LOW RESISTANCE 4 UNITS SC (18:12)
[2024-09-10 21:43] LABS: Glucose - Point of Care 204 mg/dl (70-99)
[2024-09-11] MEDS: NORMOSOL-R/PLASMALYTE-A 1000 IV (00:51)
[2024-09-11] MEDS: TYLENOL 650 MG PO (01:32)
[2024-09-11 03:35] VITALS: BP 138/80
[2024-09-11 07:23] LABS: ALT (SGPT) 89 U/L (0-50); AST (SGOT) 45 U/L (17-59); Albumin 3.4 g/dl (3.5-5.0); Alkaline Phosphatase 60 U/L (38-126); Blood Urea Nitrogen 20 mg/dl (9-20); Calcium 8.7 mg/dl (8.4-10.2); Carbon Dioxide 26 mmol/L (22-30); Chloride 104 mmol/L (98-107); Estimated Creatinine Clearance 103 ml/min; Glucose 148 mg/dl (70-99); Lipase 176 U/L (23-300); Potassium 4.2 mmol/L (3.5-5.1); Sodium 136 mmol/L (135-145); Total Bilirubin 0.6 mg/dl (0.2-1.3); Total Protein 5.6 g/dl (6.3-8.2); eGFR > 60.00
--- NOTE | 2024-09-11 07:27 | W.PN.GS2 ---
Today's Communication / Plan
-
-- DC today pending labs
Assessment / Plan
-
Patient is a 54 yo M POD#1 s/p laparoscopic cholecystectomy with cholangiogram
AVSS
Labs pending
Recovering well. No postoperative concerns.
-- LFD
-- Pain control: Tylenol, Tramadol, avoiding NSAIDS with double dose ASA
-- Home meds
-- No need for further abx
-- HLIV
-- DVT: Lovenox
-- DC today
Subjective Data
-
Date of Service: September 11, 2024
No complaints. Pain well-controlled. No nausea or vomiting. Afebrile.
Objective Data
-
Intake and Output
09/10/24 09/11/24 09/12/24
06:59 06:59 06:59
Intake Total 640 / 640
Balance 640 / 640
Intake:
Oral fluids 540 / 540
IV fluids (Total) 100 / 100
Normosol 100 / 100
Other:
Number of approximated MODERATE 1
amounts of urine
Vital Signs
Temp Pulse Resp BP Pulse Ox
98.1 F 73 16 138/80 94
09/11/24 03:35 09/11/24 03:35 09/11/24 03:35 09/11/24 03:35 09/11/24 03:35
Lab Results
09/11/24 06:33
Calcium 8.7 mg/dl (8.4-10.2) 09/11/24 06:33
Total Bilirubin 0.6 mg/dl (0.2-1.3) 09/11/24 06:33
AST 45 U/L (17-59) 09/11/24 06:33
ALT 89 U/L (0-50) H 09/11/24 06:33
Alkaline Phosphatase 60 U/L (38-126) 09/11/24 06:33
Total Protein 5.6 g/dl (6.3-8.2) L 09/11/24 06:33
Albumin 3.4 g/dl (3.5-5.0) L 09/11/24 06:33
Physical Exam
-
Gen: NAD
Abd: soft, minimal tenderness, ND, non-peritoneal, incisions c/d/i - no erythema, ecchymosis or drainage
Patient has a catheter: No
Patient has a central line: No
[2024-09-11 07:30] VITALS: BP 166/97
[2024-09-11 07:39] LABS: Hematocrit 37.3 % (39.0-52.0); Hemoglobin 13.4 g/dL (13.0-18.0); Mean Corp Hgb Conc. 35.9 g/dL (33.0-37.0); Mean Corpuscular Hgb 32.9 pg (27.0-31.0); Mean Corpuscular Volume 91.6 fL (80.0-94.0); Mean Platelet Volume 9.6 fL (7.4-10.4); Platelet Count 171 10^3/uL (130-400); Red Blood Cell Count 4.07 10^6/uL (4.70-6.10); Red Cell Dist. Width 11.5 % (11.5-14.5); White Blood Cell Count 7.9 10^3/uL (4.8-10.8)
[2024-09-11] MEDS: PROTONIX IV 40 MG IV (07:53)
[2024-09-11] MEDS: NSS (PRESERVATIVE FREE) 10 ML IV (07:54)
[2024-09-11] MEDS: NORVASC 5 MG PO (07:54)
[2024-09-11] MEDS: ZESTRIL 20 MG PO (07:54)
[2024-09-11] MEDS: ORETIC 25 MG PO (07:54)
[2024-09-11] MEDS: ZETIA 10 MG PO (07:54)
[2024-09-11 07:57] LABS: Glucose - Point of Care 120 mg/dl (70-99)
[2024-09-11] MEDS: ULTRAM 50 MG PO (08:07)
[2024-09-11] MEDS: NOVOLOG FLEXPEN-LOW RESISTANCE SC (08:10)
--- NOTE | 2024-09-11 10:13 | PTCARENOTE ---
Reviewed discharge instructions with patient. Patient verbalizes understanding of all teaching. Patient denies questions at this time. Peripheral IV removed. Patient awaiting arrival of for transport home.
[2024-09-11] MEDS: NORMOSOL-R/PLASMALYTE-A IV (11:03)
[2024-09-11 11:28] VITALS: BP 136/80
== END 2024-09-11 11:30 | disposition home or self-care (01) ==
LOC: SDS 03:37
PROVIDERS: Emergency Medicine; Nurse Practitioner Family; ATTENDING PHYSICIAN Surgery; CONSULT PHYSICIAN Internal Medicine Cardiovascular Disease; EMERGENCY PHYSICIAN Emergency Medicine; FAMILY PHYSICIAN Family Medicine
DX: K81.1 Chronic cholecystitis (principal); I25.10 Atherosclerotic heart disease of native coronary artery without angina pectoris; Z95.5 Presence of coronary angioplasty implant and graft; Z87.891 Personal history of nicotine dependence
CPT/HCPCS: 47563; 88304; 74176; 74300; 76000; 76705; 80053; 81003; 82962; 83690; 85025; 85027; 93005; 99285

== ENCOUNTER → 2025-02-13 07:02 | Outpatient (REF) | payer OTHER, SELFPAY | LOC: HWRCS 07:02 | PROVIDERS: ATTENDING PHYSICIAN Internal Medicine Cardiovascular Disease; FAMILY PHYSICIAN Family Medicine | DX: R00.2 Palpitations (principal) | CPT/HCPCS: 93306 ==